=== PATIENT | male | born 1965 | race Caucasian/White ===

== ENCOUNTER 2024-10-31 07:03 | Emergency (ER) | payer BC, SELFPAY ==
[2024-10-31] VITALS (9 sets, daily range): BP systolic 145–174; BP diastolic 68–96
[2024-10-31 07:49] LABS: % Basophils 1.2 % (0-2); % Eosinophils 3.5 % (0-6); % Immature Granulocytes 0.2 % (0-0.5); % Monocytes 10.6 % (1.7-9.3); % Neutrophils 62.5 % (42.2-75.2); Absolute Basophils 0.1 10^3/uL (0-0.2); Absolute Eosinophils 0.2 10^3/uL (0-0.7); Absolute Lymphocytes 1.1 10^3/uL (1.2-3.4); Absolute Monocytes 0.5 10^3/uL (0.1-0.6); Absolute Neutrophils 3.2 10^3/uL (1.4-6.5); Hematocrit 41.4 % (39.0-52.0); Hemoglobin 14.2 g/dL (13.0-18.0); Mean Corp Hgb Conc. 34.3 g/dL (33.0-37.0); Mean Corpuscular Hgb 29.2 pg (27.0-31.0); Mean Corpuscular Volume 85.2 fL (80.0-94.0); Mean Platelet Volume 10.8 fL (7.4-10.4); Nucleated Red Blood Cells % 0 % (-); Platelet Count 188 10^3/uL (130-400); Red Blood Cell Count 4.86 10^6/uL (4.70-6.10); Red Cell Dist. Width 13.4 % (11.5-14.5); White Blood Cell Count 5.1 10^3/uL (4.8-10.8)
[2024-10-31] MEDS: ASPIRIN 325 MG PO (07:54)
[2024-10-31 07:58] LABS: ALT (SGPT) 17 U/L (0-50); AST (SGOT) 21 U/L (17-59); Albumin 4.3 g/dl (3.5-5.0); Alkaline Phosphatase 84 U/L (38-126); Blood Urea Nitrogen 11 mg/dl (9-20); Calcium 9.7 mg/dl (8.4-10.2); Carbon Dioxide 31 mmol/L (22-30); Chloride 102 mmol/L (98-107); Glucose 110 mg/dl (70-99); Magnesium 1.9 mg/dl (1.6-2.3); Potassium 3.6 mmol/L (3.5-5.1); Sodium 139 mmol/L (135-145); Total Bilirubin 1.2 mg/dl (0.2-1.3); Total Protein 7.1 g/dl (6.3-8.2); eGFR > 60.00
--- NOTE | 2024-10-31 08:00 | ED.GENMED ---
History of Present Illness
General
Chief Complaint: Chest Pain
Source: patient and spouse
Exam Limitations: none
Time Seen by Provider: 10/31/24 07:13
Nursing documentation reviewed up to this point in time: agreed with
History of Present Illness
History of Present Illness:
59-year-old male past medical history of diabetes gastric bypass hypertension hyperlipidemia presenting to the emergency department with concerns of midsternal chest discomfort roughly 4 hours prior to arrival that was ongoing for a few hours now
improved but still mildly. [place] like a pocket of air was stuck in his chest. Denies any specific palliation or provocation does feel some mild shortness of breath associate but claims he always feels some degree of shortness of breath and does not
claim this is significantly worse than usual. Denies any recent trauma surgery immobilization, leg swelling, recent estrogen product usage, history of blood clots. Patient is a daily smoker denies any known heart disease.
Past History
Past History
ED Past Medical History: HTN, Hypercholesterolemia and NIDDM; Negative Arrthythmia, Asthma, CAD, Cancer or [place]
ED Past Surgical History: None
Social History
Tobacco: Smoker
Alcohol: Occasional
Drug: None
Personal:
Living: with family
Family History
Family History: Early CAD; Negative Diabetes, Hypertension or Asthma
Review of Systems
Review of Systems
Allergies reviewed?: Yes
All Other Systems: ROS reviewed and negative except as documented in HPI and ROS
Phy Exam
Physical Exam
Physical Exam:
GENERAL: Alert , in no apparent distress
EYE: pupils equal and reactive
NECK: Supple, no significant adenopathy.
ENT: o/p clr, mmm.
CARDIAC: Regular rate and rhythm .
LUNGS: Clear breath sounds bilaterally, no acute respiratory distress, no wheezes/rales/rhonchi
ABDOMEN: Soft, without focal tenderness, no r/g, no cvat
NEUROLOGICAL: Alert and oriented, no focal neuro deficits
SKIN: Warm and dry, skin intact.
MUSCULOSKELETAL: No edema, well perfused.
PSYCH: Normal and appropriate interaction.
Scores
Heart Score for Chest Pain Patients
STEMI patient?: No
History: Moderately Suspicious
ECG: Nonspecific Repolarization
Age: >45 - <65 years
Risk Factors: >/= 3 Risk Factors or History of CAD
Troponin: </= Normal Limit
Heart Score for Chest Pain Patients: 5
Heart Score Risk: 20.3% MACE over next 6 weeks
Course
Orders/Labs/Results
Orders:
Orders
10/31/24 07:04
Electrocardiogram (*1) Urgent
Reason for Study: Chest Pain
EKG- Treatment ONCE
10/31/24 07:24
CR Chest - 2 Views Urgent
Comment:
Reason For Exam: cp
10/31/24 07:37
Complete Blood Count/With Diff Urgent
Comprehensive Metabolic Panel Urgent
Magnesium Urgent
Troponin I Urgent
10/31/24 07:50
Aspirin 325 mg PO NOW STA
10/31/24 09:40
EKG- Treatment ONCE
10/31/24 09:55
Troponin I Urgent
10/31/24 10:00
Electrocardiogram (*1) Urgent
Reason for Study: Chest Pain
10/31/24 10:56
Echo 2D MMode Color/Doppler Urgent
Reason for Study: chest pain, HTN
Cardiology Consult: Jocelyn Guaman
[facility]
10/31/24 12:02
Amlodipine [Norvasc] 5 mg PO ONCE ONE
Lisinopril [Zestril] 20 mg PO NOW STA
Metoprolol Xl [Toprol Xl] 100 mg PO NOW STA
Abnormal Lab Results
10/31/24
07:37
MPV 10.8 H fL
(7.4-10.4)
Absolute Lymphs (auto) 1.1 L 10^3/uL
(1.2-3.4)
Monocytes % 10.6 H %
(1.7-9.3)
Carbon Dioxide 31 H mmol/L
(22-30)
Glucose 110 H mg/dl
(70-99)
10/31/24 07:37
10/31/24 07:37
Vital Signs
Initial and Last Documented VS:
Initial Vital Signs
Temp Pulse Resp BP Pulse Ox
97.6 F 72 18 174/93 100
10/31/24 07:09 10/31/24 07:09 10/31/24 07:09 10/31/24 07:09 10/31/24 07:09
Last Documented Vital Signs
Temp Pulse Resp BP Pulse Ox
97.6 F 69 19 172/93 98
10/31/24 07:09 10/31/24 14:00 10/31/24 14:00 10/31/24 14:00 10/31/24 13:30
MDM/Problems Addressed
MDM/Problems Addressed:
59-year-old male presenting with midsternal chest pain no radiation described as an air pocket stuck in his chest that was severe initially now very minimal no significant associated symptoms. Blood pressure elevated on arrival otherwise vital
signs are normal normal pulse ox and heart rate no risk factors for PE. Normal heart and lung examination patient generally well-appearing. Workup here without emergent findings EKG normal chest x-ray without emergent findings. Troponin negative
Case discussed with cardiology that saw the patient had a bedside echo which did not have emergent findings. Otherwise plan for close outpatient follow-up for stress testing and additional assessment. Patient's blood pressure remains somewhat
elevated despite taking home medications. He was advised to keep a close eye on this blood pressure remained elevated to start taking amlodipine 10 mg daily rather than 5 mg. He also was advised to start aspirin daily.
*Critical Care Note
Total Time (30-74mins, 75-104mins- exclusive of procedures): Not Applicable
ED Attending Note
-
Portions of this chart may have been created with voice recognition software.� Occasional wrong word or��sound alike� substitutions may have occurred due to the inherent limitations of voice recognition software.
Discharge Plan
Departure
Patient Disposition: Home (Routine Discharge)
Date of Disposition: 10/31/24
Time of Disposition: 14:31
Patient with high blood pressure during this ER visit?: Yes
Condition: Good
Covid-19: Not Applicable
Discharge Problem:
Chest pain
Instructions: Chest Pain DCA Follow Up, BLOOD PRESSURE
Prescriptions:
No Action
oxcarbazepine 150 mg Tablet
150 mg PO . DIRECTED
atorvastatin 20 mg Tablet
20 mg PO DAILY
lisinopril 20 mg Tablet
20 mg PO DAILY
metoprolol succinate 100 mg Tablet Extended Release 24 Hr
100 mg PO DAILY
clonazepam 1 mg Tablet
1 mg PO HS
amlodipine 5 mg Tablet
5 mg PO DAILY
pantoprazole 40 mg Tablet,Delayed Release (Dr/Ec)
40 mg PO DAILY
metformin 1,000 mg Tablet
1,000 mg PO BID
aripiprazole 15 mg Tablet
15 mg PO DAILY
Referrals:
Nixon Phipps MD [Family Provider] -
Activity Restrictions/Additional Instructions:
You came to the emergency department today with concerns of chest pain. You had a reassuring assessment here. Please follow close with cardiology for further testing and stress testing. Please take daily aspirin full dose. Please keep a close
eye on your blood pressure. If blood pressure still elevated over the next day please start using amlodipine 10 mg daily. Return for any worsening, new or concerning symptoms.
Interventions
Interventions:
*Risk Screen - Suicide Last Done: 10/31/24 07:09
*General Assessment Last Done: 10/31/24 07:09
*Neglect/Abuse Screening Last Done: 10/31/24 07:09
ED- Fall Risk Assessment Last Done: 10/31/24 07:16
*ED COVID-19 Vaccine History Last Done: 10/31/24 07:16
ED- Cardiac Assessment Last Done: 10/31/24 07:20
Discharge Date and Time
Print Language: UPPER SORBIAN
[2024-10-31 08:09] LABS: Troponin I < 0.012 ng/ml
[2024-10-31 10:35] LABS: Troponin I < 0.012 ng/ml
[2024-10-31] MEDS: ZESTRIL 20 MG PO (12:48)
[2024-10-31] MEDS: NORVASC 5 MG PO (12:49)
[2024-10-31] MEDS: TOPROL XL 100 MG PO (12:49)
--- NOTE | 2024-10-31 14:17 | CON.CAR ---
Addendum entered and electronically signed by Jocelyn Guaman MD 10/31/24 15:32:
I saw and examined the patient.
The Gluer Machine Operator's note was reviewed and I agree with the note.
Comment: Mr. Sierra is a 59-year-old gentleman with past medical history of hypertension, ongoing smoking, smokes 4 to 5 cigarettes a day, morbidly obese, family history of premature coronary artery disease in his dad at the age of 59.
Hyperlipidemia, type 2 diabetes mellitus, [id number], bipolar 1 disorder, anxiety with diabetic retinopathy who presents today after an episode of chest discomfort lasting about 15 minutes this morning. It happened around 6:30 in the
morning while patient was already awake and sitting at the kitchen counter working on his computer. He specified that this did not wake him up from sleep. He described it as an air bubble trying to pop in the middle of his chest, nonradiating,
nonexertional with associated transient shortness of breath and lightheadedness. Symptoms improved without any interventions within 15 minutes. He has been physically active over the last few weeks with no similar symptoms prior to today. He
tells me he had an episode just like this about 7 to 9 years ago when he was seen by [facility] and underwent a stress test which she was told was normal with no other cardiology follow-up. He has never needed a heart catheterization
before. He saw his primary care physician last week and was not having any complaints and therefore no cardiac medications were changed, with only medication changes being related to his anxiety disorder. Patient drinks 1 alcoholic beverage a week
and uses cannabis for anxiety.
Vital signs reviewed with blood pressures mostly hypertensive with initial blood pressure on presentation at 174/93. Patient has not taken his blood pressure medications this morning. He is currently chest pain-free. Troponin I x 2 have been
negative less than 0.012. ECG with sinus rhythm and nonspecific ST-T wave changes. On exam patient is well-appearing, in no acute distress, is at bedside, awake, alert and oriented x 3, normal carotid upstrokes, no carotid bruit, no JVD,
lungs are clear to auscultation bilaterally, regular rate, normal S1 and S2, no murmurs, rubs or gallops, abdomen is soft, nontender, nondistended with active bowel sounds, warm extremities without significant edema.
Echocardiogram was completed in the emergency room and reviewed personally by me showing normal left ventricular systolic function without regional wall motion abnormalities. No significant valvular disease. Stable mild aortic stenosis.
Recommendations:
1. Given multiple cardiovascular risk factors at the age of 59, we discussed need for an ischemic evaluation given his episode. We discussed the risk and benefits of noninvasive testing such as stress testing versus cardiac coronary CTA and
invasive coronary angiogram. After discussing the risk and benefits, in a shared decision-making fashion, we have decided to proceed with outpatient stress testing in the setting of negative troponins, short-lived episode of chest discomfort,
nonexertional in nature and a normal echocardiogram. We will work with him to get this set up along with cardiology follow-up. We did discuss that in case he has recurrent of symptoms until stress test is completed he should come back to the
emergency room and we would consider proceeding with a heart catheterization instead.
2. We will add daily baby aspirin until after ischemic evaluation is completed and increase his amlodipine to 10 mg daily for better blood pressure control.
3. Aggressive management of cardiovascular risk factors.
4. Strongly emphasized importance of smoking cessation.
5. Discussed all of the above with emergency department staff and at bedside.
Jocelyn Guaman MD, [facility], [facility]
Original Note:
Consultation
Consultation Request
Date/Time Consultation Requested: 10/31/24
Date/Time Consultation Performed: 10/31/24
Requesting Provider: Narciso GERONIMO in ER
Performing Provider: Dr. Guaman
Reason for Consultation: Chest pain
Medical History
-
History of Present Illness:
Patient came to [facility] ER today with chest pain and cardiology has been consulted. Patient went to bed last night in his usual state of health and then awoke early this morning with substernal chest pain. Chest pain is not worse with
deep breath or movement. Chest pain did not improve with sitting up in bed. Chest pain was persistent for about 4 hours prior to coming to the ER. Initial ECG with lateral T wave inversion which was new compared to previous EKG. Initial troponin
undetectable. BP in the ER was 174/93 initially and improved to 145/82 after his usual meds of amlodipine 5 mg daily, lisinopril 20 mg daily and Toprol-XL 100 mg daily were given. Patient reports that his chest pain resolved in the ER and has not
recurred. No palpitations.
PMH:
HTN
Smoker
Obese
DM 2
Diabetic retinopathy
Bipolar I disorder
Past Medical History
Past Medical History: Other (in HPI)
Past Surgical History: Other (vertical sleeve gastrectomy 2013)
Social History
Tobacco: Smoker
Alcohol: Occasional
Drug: None
Personal:
Living: With Family
Employment: Employed (works for [employer])
Family History
Family History: CAD (father CT in his 50s)
Allergies / Home Medications
Allergy/AdvReac Type Severity Reaction Status Date / Time
No Known Allergies Allergy Verified 10/31/24 07:09
�Medication �Instructions �Recorded �Confirmed �Type
amlodipine 5 mg tablet 5 mg PO DAILY 10/31/24 10/31/24 History
aripiprazole 15 mg tablet 15 mg PO DAILY 10/31/24 10/31/24 History
atorvastatin 20 mg tablet 20 mg PO DAILY 10/31/24 10/31/24 History
clonazepam 1 mg tablet 1 mg PO HS 10/31/24 10/31/24 History
lisinopril 20 mg tablet 20 mg PO DAILY 10/31/24 10/31/24 History
metformin 1,000 mg tablet 1,000 mg PO BID 10/31/24 10/31/24 History
metoprolol succinate 100 mg 100 mg PO DAILY 10/31/24 10/31/24 History
tablet,extended release 24 hr
oxcarbazepine 150 mg tablet 150 mg PO . DIRECTED 10/31/24 10/31/24 History
pantoprazole 40 mg tablet,delayed 40 mg PO DAILY 10/31/24 10/31/24 History
release
Review of Systems
-
History Source: Patient and Family ( sitting bedside)
All other systems: Negative unless noted
Physical Exam
Vital Signs
Temp Pulse Resp BP Pulse Ox
97.6 F 69 19 172/93 98
10/31/24 07:09 10/31/24 14:00 10/31/24 14:00 10/31/24 14:00 10/31/24 13:30
GEN: NAD. AAOx3
HEENT: EOMI, MMM
LUNGS: RA. CTA B/L, no wheeze
CV: SR on tele. Reg, S1/S2, no murmur
ABD: soft, BS+, NT, ND
EXT: No clubbing, cyanosis, lesions or edema B/L
NEURO: Gross non-focal
SKIN: Warm, dry and pink. No rash
Lab Results
10/31/24 07:37
10/31/24 07:37
Troponin I < 0.012 ng/ml 10/31/24 09:55
Impression / Plan
-
PCP: Dr. Phipps
Cardiology: None, seen initially by Dr. Guaman
Impression:
Chest pain
HTN with LVH
Smoker
Obese
DM 2
Diabetic retinopathy
Bipolar I disorder
Echo 10/31/2024: EF 55 to 60%, mild concentric LVH, mild MR, mild peak/mean 30/16 mmHg and ROHIT 2.2 cm sq, mild TR with PAP 30 mmHg
Plan:
-Patient came to [facility] ER today with chest pain and cardiology has been consulted. Patient went to bed last night in his usual state of health and then awoke early this morning with substernal chest pain. Chest pain is not worse with
deep breath or movement. Chest pain did not improve with sitting up in bed. Chest pain was persistent for about 4 hours prior to coming to the ER. Initial ECG with lateral T wave inversion which was new compared to previous EKG. Initial troponin
undetectable. BP in the ER was 174/93 initially and improved to 145/82 after his usual meds of amlodipine 5 mg daily, lisinopril 20 mg daily and Toprol-XL 100 mg daily were given. Patient reports that his chest pain resolved in the ER and has not
recurred. No palpitations.
-ECG reviewed by me shows lateral T wave inversions. Telemetry reviewed by me shows SR without evidence of atrial arrhythmia
-Troponin undetectable x 2
-Patient and given results of echo as noted above, no new WMA and EF preserved to 55%.
-Recommend exercise nuclear stress test given age 59, type 2 diabetes, active smoker, hypertension with LVH and baseline abnormal EKG with lateral T wave inversions.
-Patient given instructions for stress test and will ask office to call to schedule stress test.
-Patient was asked to start aspirin 81 mg daily until we have results of stress test.
== END 2024-10-31 14:36 | disposition home or self-care (01) ==
LOC: EMR 07:03
PROVIDERS: Physician Assistant; EMERGENCY PHYSICIAN Emergency Medicine; FAMILY PHYSICIAN Family Medicine; OTHER PHYSICIAN Internal Medicine Interventional Cardiology
DX: R07.89 Other chest pain (principal); I10 Essential (primary) hypertension; E78.00 Pure hypercholesterolemia, unspecified; E11.9 Type 2 diabetes mellitus without complications; F17.200 Nicotine dependence, unspecified, uncomplicated
CPT/HCPCS: 99285; 71046; 80053; 83735; 84484; 85025; 93005; 93306

== ENCOUNTER → 2024-11-19 07:12 | Outpatient (REF) | payer BC, SELFPAY | LOC: HWRCS 07:12 | PROVIDERS: ATTENDING PHYSICIAN Internal Medicine Interventional Cardiology; FAMILY PHYSICIAN Family Medicine | DX: R07.89 Other chest pain (principal); E11.319 Type 2 diabetes mellitus with unspecified diabetic retinopathy without macular edema; R94.31 Abnormal electrocardiogram [ECG] [EKG]; F17.200 Nicotine dependence, unspecified, uncomplicated | CPT/HCPCS: 78452; 93017; A9500; J2785 ==

== ENCOUNTER 2025-06-11 06:15 | Day surgery (SDC) | payer BC, SELFPAY ==
[2025-05-31 09:22] LABS: Hematocrit 42.5 % (39.0-52.0); Hemoglobin 13.9 g/dL (13.0-18.0); Mean Corp Hgb Conc. 32.7 g/dL (33.0-37.0); Mean Corpuscular Volume 86.6 fL (80.0-94.0); Platelet Count 191 10^3/uL (130-400); Red Cell Dist. Width 13.7 % (11.5-14.5)
[2025-05-31 12:24] VITALS: BMI 27.2
[2025-05-31 13:05] LABS: Blood Urea Nitrogen 12 mg/dl (9-20); Calcium 9.7 mg/dl (8.4-10.2); Carbon Dioxide 29 mmol/L (22-30); Chloride 106 mmol/L (98-107); Estimated Creatinine Clearance 114 ml/min; Glucose 80 mg/dl (70-99); Potassium 4.8 mmol/L (3.5-5.1); Sodium 141 mmol/L (135-145); eGFR > 60.00
--- NOTE | 2025-06-04 14:11 | PTCARENOTE ---
Abn ECG, Dr. Da Silva notified, no additional interventions requested.
[2025-06-11] VITALS (16 sets, daily range): BP systolic 139–163; BP diastolic 72–107; BMI 27.2
[2025-06-11 09:12] LABS: Glucose - Point of Care 97 mg/dl (70-99)
[2025-06-11] MEDS: NORMOSOL-R/PLASMALYTE-A 1000 IV (09:12)
--- NOTE | 2025-06-11 12:11 | W.PN.ADMIT ---
Progress Note - Admit
Progress Note - Admit
pt s/p TURP
admit for CBI and medical monitoring
[2025-06-11 12:28] LABS: Glucose - Point of Care 118 mg/dl (70-99)
[2025-06-11 13:09] LABS: Hematocrit 44.0 % (39.0-52.0); Hemoglobin 14.7 g/dL (13.0-18.0); Mean Corp Hgb Conc. 33.4 g/dL (33.0-37.0); Mean Corpuscular Volume 84.3 fL (80.0-94.0); Platelet Count 185 10^3/uL (130-400); Red Cell Dist. Width 13.4 % (11.5-14.5)
[2025-06-11 13:23] LABS: Blood Urea Nitrogen 13 mg/dl (9-20); Calcium 9.4 mg/dl (8.4-10.2); Carbon Dioxide 28 mmol/L (22-30); Chloride 103 mmol/L (98-107); Estimated Creatinine Clearance 100 ml/min; Glucose 117 mg/dl (70-99); Potassium 4.1 mmol/L (3.5-5.1); Sodium 137 mmol/L (135-145); eGFR > 60.00
[2025-06-11] MEDS: NSS 1000 IV (15:57)
--- NOTE | 2025-06-11 16:01 | PTCARENOTE ---
Pt arrived to [facility] from PACU in a bed s/p TURP. CBI running with clear output. Thigh high teds/scds on pt. Pt bedrest. 94% on RA. Admission questions answered. Bed locked and in lowest position. Care ongoing.
--- NOTE | 2025-06-11 16:03 | PTCARENOTE ---
Traction removed at 1600. Care ongoing.
[2025-06-11 16:29] LABS: Glucose - Point of Care 138 mg/dl (70-99)
[2025-06-11] MEDS: COLACE 100 MG PO (19:38)
[2025-06-11] MEDS: TRILEPTAL 150 MG PO (19:38)
[2025-06-11] MEDS: VIBRAMYCIN 100 MG PO (19:38)
[2025-06-11] MEDS: PROTONIX 40 MG PO (20:24)
[2025-06-11 21:26] LABS: Glucose - Point of Care 149 mg/dl (70-99)
--- NOTE | 2025-06-11 21:56 | PTCARENOTE ---
While CBI bag 6 was infusing, saucedo was not closed completely. Moderate amount of clear drainage on floor. Saucedo bag fixed, bag 7 unclamped.
--- NOTE | 2025-06-12 02:39 | DOWNTIME ---
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 Downtime documentation of patient's care, including medication administrations, has been reconciled in the electronic record per guidelines. Refer to the
patient's paper chart under the miscellaneous tab to see printed paper medication records and downtime forms.
[2025-06-12] MEDS: NSS 1000 IV (02:41)
[2025-06-12 03:00] VITALS: BP 168/86
[2025-06-12 06:48] LABS: Blood Urea Nitrogen 15 mg/dl (9-20); Calcium 9.5 mg/dl (8.4-10.2); Carbon Dioxide 30 mmol/L (22-30); Chloride 105 mmol/L (98-107); Estimated Creatinine Clearance 114 ml/min; Glucose 92 mg/dl (70-99); Potassium 3.7 mmol/L (3.5-5.1); Sodium 139 mmol/L (135-145); eGFR > 60.00
--- NOTE | 2025-06-12 07:15 | W.PN.URO.CBU ---
Today's Communication / Plan
-
routine post turp care
Assessment / Plan
-
s/p TURP
regular diet
UOOB
wean CBI
plan TOV tomorrow
Diagnosis
-
Date of Service: June 12, 2025
-
Patient Diagnosis:
bph
Post Op Day:
turp 06/11
Subjective
-
no complaints
urine clear on medium rate cbi
Objective
-
Vital Signs
Temp Pulse Resp BP Pulse Ox
98.2 F 63 17 168/86 96
06/12/25 03:00 06/12/25 03:00 06/12/25 03:00 06/12/25 03:00 06/12/25 03:00
Intake and Output
06/11/25 06/12/25 06/13/25
06:59 06:59 06:59
Intake Total 1959 / 1959
Output Total 1834
Balance 125 / 125
Intake:
Oral fluids 1440 / 1440
IV fluids (Total) 520 / 520
Normosol 200 / 200
Output:
True Urine Output from CBI 1834
Laboratory Results
06/12/25 05:41
Review of Systems
-
Constitutional: No Symptoms
Respiratory: No Symptoms
Cardiac: No Symptoms
Abdomen/GI: No Symptoms
Physical Exam
-
General - no acute distress
Abdomen - soft, non-tender
Genitalia - saucedo in place
[2025-06-12 07:30] VITALS: BP 163/88
[2025-06-12 08:15] LABS: Glucose - Point of Care 112 mg/dl (70-99)
[2025-06-12] MEDS: ABILIFY 10 MG PO (08:26)
[2025-06-12] MEDS: LEXAPRO 5 MG PO (08:26)
[2025-06-12] MEDS: COLACE 100 MG PO (08:26)
[2025-06-12] MEDS: ZYRTEC 10 MG PO (08:26)
[2025-06-12] MEDS: LIPITOR 20 MG PO (08:26)
[2025-06-12] MEDS: GLUCOPHAGE 1000 MG PO (08:27)
[2025-06-12] MEDS: PROTONIX 40 MG PO (08:28)
[2025-06-12] MEDS: VIBRAMYCIN 100 MG PO ×2 (08:28→19:32)
[2025-06-12] MEDS: TRILEPTAL 150 MG PO ×2 (08:28→19:32)
[2025-06-12] MEDS: TOPROL XL 100 MG PO (08:28)
[2025-06-12] MEDS: ZESTRIL 20 MG PO (08:29)
[2025-06-12] MEDS: NORVASC 10 MG PO (08:30)
[2025-06-12 09:26] LABS: Glycohemoglobin (HgbA1c) 6.0 % (4.0-5.6)
[2025-06-12 11:31] VITALS: BP 163/82
[2025-06-12 12:05] LABS: Glucose - Point of Care 109 mg/dl (70-99)
[2025-06-12 14:39] LABS: Hematocrit 42.7 % (39.0-52.0); Hemoglobin 14.5 g/dL (13.0-18.0); Mean Corp Hgb Conc. 34.0 g/dL (33.0-37.0); Mean Corpuscular Volume 84.2 fL (80.0-94.0); Platelet Count 187 10^3/uL (130-400); Red Cell Dist. Width 13.3 % (11.5-14.5)
[2025-06-12 15:47] VITALS: BP 158/88
--- NOTE | 2025-06-12 16:04 | CM ---
manager of program reviewed patient's chart and met with patient and patient lives with spouse in a a 2 story home, patient is independent with adl's and ambulation, no dme, patient drives home when stable no needs.
PCP: Dr Phipps
Pharmacy: [facility]
[2025-06-12 17:48] LABS: Glucose - Point of Care 101 mg/dl (70-99)
[2025-06-12] MEDS: COLACE PO (19:32)
[2025-06-12 21:23] LABS: Glucose - Point of Care 95 mg/dl (70-99)
[2025-06-12 23:15] VITALS: BP 165/78
--- NOTE | 2025-06-13 00:06 | PTCARENOTE ---
Pt CBI clamped at 0000 per order. Cath plug in place. Care remains ongoing.
--- NOTE | 2025-06-13 06:28 | W.PN.URO.CBU ---
Today's Communication / Plan
-
restart cbi
Assessment / Plan
-
s/p TURP
cbi restarted- urine cleared quickly
will observe another 24hrs on drip
Diagnosis
-
Date of Service: June 13, 2025
-
Patient Diagnosis:
bph
Post Op Day:
turp 06/11
Subjective
-
pt stable
cbi off since midnight- urine red
Objective
-
Vital Signs
Temp Pulse Resp BP Pulse Ox
98.6 F 68 17 165/78 98
06/12/25 23:15 06/12/25 23:15 06/12/25 23:15 06/12/25 23:15 06/12/25 23:15
Intake and Output
06/11/25 06/12/25 06/13/25
06:59 06:59 06:59
Intake Total 1959 / 1959
Output Total 1834 4300 / 4300
Balance 125 / 125 -4300 / -4300
Intake:
Oral fluids 1440 / 1440
IV fluids (Total) 520 / 520
Normosol 200 / 200
Output:
True Urine Output from CBI 1834 4300 / 4300
Laboratory Results
06/12/25 05:42
06/12/25 05:41
Review of Systems
-
Constitutional: Fatigue
Respiratory: No Symptoms
Cardiac: No Symptoms
Abdomen/GI: No Symptoms
Physical Exam
-
General - no acute distress
Abdomen - soft, non-tender
Genitalia - [address]
[2025-06-13 07:06] LABS: Glucose - Point of Care 108 mg/dl (70-99)
[2025-06-13 07:10] VITALS: BP 151/81
[2025-06-13] MEDS: LIPITOR 20 MG PO (09:18)
[2025-06-13] MEDS: ZYRTEC 10 MG PO (09:18)
[2025-06-13] MEDS: TRILEPTAL 150 MG PO ×2 (09:18→20:00)
[2025-06-13] MEDS: TOPROL XL 100 MG PO (09:18)
[2025-06-13] MEDS: PROTONIX 40 MG PO (09:18)
[2025-06-13] MEDS: GLUCOPHAGE 1000 MG PO (09:18)
[2025-06-13] MEDS: ABILIFY 10 MG PO (09:19)
[2025-06-13] MEDS: LEXAPRO 5 MG PO (09:19)
[2025-06-13] MEDS: NORVASC 10 MG PO (09:19)
[2025-06-13] MEDS: VIBRAMYCIN 100 MG PO ×2 (09:19→20:00)
[2025-06-13] MEDS: ZESTRIL 20 MG PO (09:19)
[2025-06-13] MEDS: COLACE 100 MG PO ×2 (09:20→20:00)
--- NOTE | 2025-06-13 10:08 | CM ---
Cm reviewed medical records. Patient is not medically ready for discharge.
PLAN: home no needs anticipated.
[2025-06-13 12:09] LABS: Glucose - Point of Care 87 mg/dl (70-99)
[2025-06-13 15:25] VITALS: BP 158/77
[2025-06-13 17:58] LABS: Glucose - Point of Care 110 mg/dl (70-99)
[2025-06-13 21:17] LABS: Glucose - Point of Care 109 mg/dl (70-99)
[2025-06-13 23:06] VITALS: BP 147/75
--- NOTE | 2025-06-14 07:14 | PTCARENOTE ---
pt cbi running ---pink urine. clamped at midnight. in am saucedo - bloody output 200ml.
--- NOTE | 2025-06-14 07:18 | W.PN.UPDATE ---
Update Note
Progress Note Update
pt stable overnight
urine omega off cbi since midnight
TOV of void today and likely discharge
[2025-06-14 07:35] VITALS: BP 160/78
[2025-06-14 07:36] LABS: Glucose - Point of Care 237 mg/dl (70-99)
[2025-06-14] MEDS: NORVASC 10 MG PO (08:06)
[2025-06-14] MEDS: TOPROL XL 100 MG PO (08:06)
[2025-06-14] MEDS: LIPITOR 20 MG PO (08:06)
[2025-06-14] MEDS: GLUCOPHAGE 1000 MG PO (08:06)
[2025-06-14] MEDS: VIBRAMYCIN 100 MG PO (08:06)
[2025-06-14] MEDS: COLACE 100 MG PO (08:06)
[2025-06-14] MEDS: PROTONIX 40 MG PO (08:06)
[2025-06-14] MEDS: TRILEPTAL 150 MG PO (08:06)
[2025-06-14] MEDS: LEXAPRO 5 MG PO (08:06)
[2025-06-14] MEDS: ZESTRIL 20 MG PO (08:07)
[2025-06-14] MEDS: ZYRTEC 10 MG PO (08:07)
[2025-06-14] MEDS: ABILIFY 10 MG PO (08:07)
[2025-06-14 12:24] LABS: Glucose - Point of Care 121 mg/dl (70-99)
--- NOTE | 2025-06-14 14:24 | W.DS.TRANS ---
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
-
Discharge Instructions:
Sleep Apnea Risk Intermediate
Discharge Diagnosis/Procedures you had a transurethral resection of the
prostate
Diet No restrictions
Activity No strenuous activity
Additional Activity no lifting over 10lbs for 7 days
Driving Restrictions no driving for 5 days
Bathing Restrictions OK to Shower
Wound Care expect some intermittent blood in the urine
along with frequency/urgency and occ leak
Instructions:
Stand-Alone Forms:
Changes to Home Medications: No
Discharge Medications:
DC Medications w/original date entered in [employer]
atorvastatin 20 mg tablet 20 mg PO DAILY 10/31/24
lisinopril 20 mg tablet 20 mg PO DAILY 10/31/24
metformin 1,000 mg tablet 1,000 mg PO DAILY 10/31/24
metoprolol succinate 100 mg tablet,extended release 24 hr 100 mg PO DAILY 10/31/24
oxcarbazepine 150 mg tablet 150 mg PO BID 10/31/24
pantoprazole 40 mg tablet,delayed release 40 mg PO DAILY 10/31/24
amlodipine 10 mg tablet 10 mg PO DAILY 06/04/25
aripiprazole 10 mg tablet 10 mg PO DAILY 06/04/25
dulaglutide 3 mg/0.5 mL subcutaneous pen injector (Trulicity) 3 mg SC MO 06/04/25
escitalopram oxalate 5 mg tablet (Lexapro) 5 mg PO DAILY 06/04/25
tadalafil 20 mg tablet 20 mg PO PRN PRN ED 06/04/25
tamsulosin 0.4 mg capsule 0.4 mg PO DAILY 06/04/25
cetirizine 10 mg tablet (Aller-Irma) 10 mg PO DAILY 06/11/25
doxycycline hyclate 100 mg capsule 100 mg PO BID #10 caps 06/14/25
tramadol 50 mg tablet 50 mg PO Q8H PRN Pain #10 tabs 06/14/25
Home Medication Changes
Pending Results: No
[2025-06-14 14:52] VITALS: BP 160/79
== END 2025-06-14 14:57 | disposition home or self-care (01) ==
LOC: SDS 06:15
PROVIDERS: ATTENDING PHYSICIAN Specialist; FAMILY PHYSICIAN Family Medicine
DX: N40.1 Benign prostatic hyperplasia with lower urinary tract symptoms (principal)
CPT/HCPCS: 52601; 36415; 80048; 82962; 83036; 85027; 88305; 88344